=== PATIENT | male | born 1985 | race African-American/Black ===

== ENCOUNTER 2021-01-19 18:18 | Emergency (ER) | payer OTHER ==
[2021-01-19 19:26] VITALS: BMI 26.3
[2021-01-20 05:03] VITALS: BP 141/96; PULSE 87
== END 2021-01-20 06:55 | disposition home or self-care (01) ==
LOC: JER 18:18
DX: F11.129 Opioid abuse with intoxication, unspecified (principal)
CPT/HCPCS: 99283-25